=== PATIENT | female | born 1935 | race Caucasian/White ===

== ENCOUNTER → 2019-03-07 | Outpatient (CLI) | payer MEDICARE, OTHER ==
[2019-03-07 18:50] LABS: Anion Gap -2 mmol/L (6-16); Blood Urea Nitrogen 17 mg/dL (8-24); Bun/Creatinine Ratio 20.8 (12.0-20.0); CO2, Blood 34 mmol/L (21-32); Chloride, Blood 107 mmol/L (98-108); Creatinine, Blood 0.82 mg/dL (0.40-1.00); Glomerular Filtration Rate >60 (60-); Glucose, Blood 104 mg/dL (70-99); Potassium, Blood 4.6 mmol/L (3.5-5.5); Sodium, Blood 139 mmol/L (136-145)
== END | disposition home or self-care (01) ==
LOC: LAB SHORT 18:30 → LAB 18:30 → LAB FUT 03-07 14:25 → EDSTATUS 03-07 14:25
PROVIDERS: Nurse Practitioner Family
DX: I50.9 Heart failure, unspecified (principal); I42.9 Cardiomyopathy, unspecified
CPT/HCPCS: 80048

== ENCOUNTER → 2019-07-04 | Outpatient (CLI) | payer MEDICARE, OTHER ==
[2019-07-05 18:21] LABS: Alanine Aminotransfer (ALT/SGP 28 U/L (12-78); Albumin, Blood 3.5 g/dL (3.4-5.0); Albumin/Globulin Ratio 0.9 (0.8-1.8); Alk Phos 91 U/L (50-136); Anion Gap 6 mmol/L (6-16); Aspartate Aminotrans (AST/SGOT 14 U/L (12-37); Bilirubin, Total 0.6 mg/dL (0.1-1.0); Blood Urea Nitrogen 17 mg/dL (8-24); CO2, Blood 33 mmol/L (21-32); Calcium, Blood 9.4 mg/dL (8.5-10.1); Chloride, Blood 102 mmol/L (98-108); Cholesterol 225 mg/dL (50-200); Globulin, Blood 3.9 g/dL (2.2-4.0); Glucose, Blood 111 mg/dL (70-99); HDL Cholesterol 110 mg/dL (>39); LDL Direct Measurement 96 mg/dL (0-130); LDL/HDL RATIO 0.9; Low Density Lipoprotein Chol 100 mg/dL (0-110); Potassium, Blood 3.8 mmol/L (3.5-5.5); Sodium, Blood 141 mmol/L (136-145); Total Protein, Blood 7.4 g/dL (6.4-8.2); Triglycerides 73 mg/dL (30-160); Very Low Density Lipoprot Chol 14 mg/dL (6-32)
[2019-07-05 18:24] LABS: Bun/Creatinine Ratio 24.1 (12.0-20.0); Creatinine, Blood 0.71 mg/dL (0.40-1.00); Glomerular Filtration Rate >60 (60-)
[2019-07-05 18:30] LABS: BASOPHILS ABSOLUTE AUTO 0.05 K/mm3 (0.00-0.23); BASOPHILS PERCENT AUTO 1 % (0-2); EOSINOPHILS ABSOLUTE AUTO 0.11 K/mm3 (0.00-0.68); EOSINOPHILS PERCENT AUTO 2 % (0-6); Hematocrit 44.3 % (33.0-51.0); Hemoglobin 14.1 g/dL (11.5-16.0); IMMATURE GRAN ABSOLUTE AUTO 0.02 K/mm3 (0.00-0.10); IMMATURE GRAN PERCENT AUTO 0 % (0-1); LYMPHOCYTES ABSOLUTE AUTO 1.53 K/mm3 (0.84-5.20); LYMPHOCYTES PERCENT AUTO 21 % (21-46); MONOCYTES PERCENT AUTO 8 % (4-13); Mean Corpuscular HGB 30.2 pg (26.0-34.0); Mean Corpuscular HGB Conc 31.8 g/dL (31.5-36.5); Mean Corpuscular Volume 95 fL (80-100); Mean Platelet Volume 12.9 fL (9.1-12.4); NEUTROPHILS ABSOLUTE AUTO 4.83 K/mm3 (1.96-9.15); NEUTROPHILS PERCENT AUTO 68 % (41-73); Platelet Count 244 K/mm3 (150-400); RDW Coefficient Variation 14.3 % (11.7-14.2); RDW Standard Deviation 49.4 fL (35.1-46.3); Red Blood Cell Count 4.67 M/mm3 (3.80-5.20); White Blood Cell Count 7.14 K/mm3 (4.00-11.30)
== END | disposition home or self-care (01) ==
LOC: LAB 16:29 → LAB SHORT 16:29 → LAB FUT 07-05 15:55 → EDSTATUS 07-05 15:55
PROVIDERS: Nurse Practitioner Family
DX: E78.5 Hyperlipidemia, unspecified (principal); I50.9 Heart failure, unspecified
CPT/HCPCS: 80053; 80061; 83721; 85025

== ENCOUNTER → 2020-09-05 | Outpatient (CLI) | payer MEDICARE, OTHER ==
[2020-09-05 17:42] LABS: BASOPHILS ABSOLUTE AUTO 0.06 K/mm3 (0.00-0.23); BASOPHILS PERCENT AUTO 1 % (0-2); EOSINOPHILS ABSOLUTE AUTO 0.08 K/mm3 (0.00-0.68); EOSINOPHILS PERCENT AUTO 2 % (0-6); Hematocrit 35.4 % (33.0-51.0); Hemoglobin 13.2 g/dL (11.5-16.0); IMMATURE GRAN ABSOLUTE AUTO 0.02 K/mm3 (0.00-0.10); IMMATURE GRAN PERCENT AUTO 0 % (0-1); LYMPHOCYTES PERCENT AUTO 26 % (21-46); MONOCYTES ABSOLUTE AUTO 0.57 K/mm3 (0.16-1.47); MONOCYTES PERCENT AUTO 10 % (4-13); Mean Corpuscular HGB 36.6 pg (26.0-34.0); Mean Corpuscular HGB Conc 37.3 g/dL (31.5-36.5); Mean Corpuscular Volume 98 fL (80-100); Mean Platelet Volume 12.9 fL (9.1-12.4); NEUTROPHILS ABSOLUTE AUTO 3.37 K/mm3 (1.96-9.15); NEUTROPHILS PERCENT AUTO 61 % (41-73); Platelet Count 225 K/mm3 (150-400); RDW Coefficient Variation 15.5 % (11.7-14.2); RDW Standard Deviation 50.4 fL (35.1-46.3); Red Blood Cell Count 3.61 M/mm3 (3.80-5.20)
[2020-09-05 18:20] LABS: Cholesterol 202 mg/dL (50-200); HDL Cholesterol 100 mg/dL (>39); LDL Direct Measurement 88 mg/dL (0-130); LDL/HDL RATIO 0.9; Low Density Lipoprotein Chol 92 mg/dL (0-110); Triglycerides 49 mg/dL (30-160); Very Low Density Lipoprot Chol 9 mg/dL (6-32)
[2020-09-05 18:21] LABS: Alanine Aminotransfer (ALT/SGP 31 U/L (12-78); Albumin, Blood 3.3 g/dL (3.4-5.0); Alk Phos 87 U/L (50-136); Anion Gap 4 mmol/L (6-16); Aspartate Aminotrans (AST/SGOT 16 U/L (12-37); Bilirubin, Total 0.6 mg/dL (0.1-1.0); Blood Urea Nitrogen 14 mg/dL (8-24); Bun/Creatinine Ratio 19.7 (12.0-20.0); CO2, Blood 30 mmol/L (21-32); Calcium, Blood 8.9 mg/dL (8.5-10.1); Chloride, Blood 108 mmol/L (98-108); Creatinine, Blood 0.71 mg/dL (0.40-1.00); Globulin, Blood 3.4 g/dL (2.2-4.0); Glomerular Filtration Rate >60 (60-); Glucose, Blood 103 mg/dL (70-99); Potassium, Blood 4.2 mmol/L (3.5-5.5); Sodium, Blood 142 mmol/L (136-145); Total Protein, Blood 6.7 g/dL (6.4-8.2)
== END | disposition home or self-care (01) ==
LOC: LAB SHORT 16:09 → LAB 16:09
PROVIDERS: Nurse Practitioner Family
DX: Z00.00 Encounter for general adult medical examination without abnormal findings (principal); I11.0 Hypertensive heart disease with heart failure; I50.9 Heart failure, unspecified
CPT/HCPCS: 80053; 80061; 83721; 85025

== ENCOUNTER → 2021-08-11 | Outpatient (CLI) | payer MEDICARE, OTHER | END | disposition home or self-care (01) | LOC: LAB SHORT 12:00 | DX: S81.801A Unspecified open wound, right lower leg, initial encounter (principal) | CPT/HCPCS: 87070; 87077; 87147; 87186; 87205 ==

== ENCOUNTER → 2021-09-30 | Outpatient (CLI) | payer MEDICARE, OTHER ==
[2021-09-30 19:40] LABS: Alanine Aminotransfer (ALT/SGP 23 U/L (12-78); Albumin, Blood 3.8 g/dL (3.4-5.0); Albumin/Globulin Ratio 1.1 (0.8-1.8); Alk Phos 92 U/L (50-136); Anion Gap 3 mmol/L (6-16); Aspartate Aminotrans (AST/SGOT 10 U/L (12-37); Bilirubin, Total 0.6 mg/dL (0.1-1.0); Blood Urea Nitrogen 18 mg/dL (8-24); Bun/Creatinine Ratio 27.3 (12.0-20.0); CO2, Blood 33 mmol/L (21-32); Calcium, Blood 9.2 mg/dL (8.5-10.1); Chloride, Blood 104 mmol/L (98-108); Creatinine, Blood 0.66 mg/dL (0.40-1.00); Globulin, Blood 3.4 g/dL (2.2-4.0); Glomerular Filtration Rate >60 (60-); Glucose, Blood 118 mg/dL (70-99); Potassium, Blood 4.6 mmol/L (3.5-5.5); Sodium, Blood 140 mmol/L (136-145); Total Protein, Blood 7.2 g/dL (6.4-8.2)
== END | disposition home or self-care (01) ==
LOC: LAB SHORT 10:03
PROVIDERS: Nurse Practitioner Family
DX: S81.801A Unspecified open wound, right lower leg, initial encounter (principal); S91.302D Unspecified open wound, left foot, subsequent encounter; I50.9 Heart failure, unspecified
CPT/HCPCS: 80053; 87070; 87205

== ENCOUNTER 2021-12-10 03:33 | Day surgery (SDC) | payer MEDICARE, OTHER | END 2021-12-10 23:19 | disposition home or self-care (01) | LOC: WOUND 03:33 | DX: L97.812 Non-pressure chronic ulcer of other part of right lower leg with fat layer exposed (principal); L97.522 Non-pressure chronic ulcer of other part of left foot with fat layer exposed; I70.213 Atherosclerosis of native arteries of extremities with intermittent claudication, bilateral legs; I87.2 Venous insufficiency (chronic) (peripheral); R60.0 Localized edema; Z88.1 Allergy status to other antibiotic agents; Z87.891 Personal history of nicotine dependence; J44.9 Chronic obstructive pulmonary disease, unspecified; I25.10 Atherosclerotic heart disease of native coronary artery without angina pectoris; I11.0 Hypertensive heart disease with heart failure; I50.9 Heart failure, unspecified | CPT/HCPCS: A9270 ==

== ENCOUNTER 2021-12-17 00:52 | Day surgery (SDC) | payer MEDICARE, OTHER | END 2021-12-17 22:50 | disposition home or self-care (01) | LOC: WOUND 00:52 | DX: L97.812 Non-pressure chronic ulcer of other part of right lower leg with fat layer exposed (principal); L97.522 Non-pressure chronic ulcer of other part of left foot with fat layer exposed; I70.213 Atherosclerosis of native arteries of extremities with intermittent claudication, bilateral legs; I87.2 Venous insufficiency (chronic) (peripheral); R60.0 Localized edema; I50.9 Heart failure, unspecified; J44.9 Chronic obstructive pulmonary disease, unspecified | CPT/HCPCS: A9270 ==

== ENCOUNTER → 2021-12-23 | Outpatient (CLI) | payer MEDICARE, OTHER ==
[~2021-12-23] MED LIST: ALBU90OI INH; BUMETANIDE2 M6 PO; ENTRESTO 24 MG1 EAC3 PO; KLOR-CON 1010 ME8 PO; METOPROLOL SUCC25 MG PO; MULVITA PO; NITR.4SL SL; TUMERIC PO; Vitamin C100 M1 PO; WIXELA 250-501 EAC1 INH
[2021-12-23 17:34] LABS: International Normalized Ratio 0.98; Prothrombin Time Results 10.3 Sec (9.7-11.5)
[2021-12-23 18:15] LABS: Hematocrit 43.3 % (33.0-51.0); Hemoglobin 14.2 g/dL (11.5-16.0); Mean Corpuscular HGB Conc 32.8 g/dL (31.5-36.5); Mean Corpuscular Volume 95 fL (80-100); Mean Platelet Volume 12.6 fL (9.1-12.4); Platelet Count 225 K/mm3 (150-400); RDW Coefficient Variation 13.5 % (11.7-14.2); RDW Standard Deviation 47.1 fL (35.1-46.3); Red Blood Cell Count 4.58 M/mm3 (3.80-5.20); White Blood Cell Count 6.37 K/mm3 (4.00-11.30)
[2021-12-23 19:55] LABS: BASOPHILS ABSOLUTE MAN 0.19 K/mm3 (0.00-0.23); BASOPHILS PERCENT MAN 3 % (0-2); EOSINOPHILS ABSOLUTE MAN 0.12 K/mm3 (0.00-0.68); EOSINOPHILS PERCENT MAN 2 % (0-6); LYMPHOCYTES ABSOLUTE MAN 1.91 K/mm3 (0.84-5.20); LYMPHOCYTES PERCENT MAN 30 % (21-46); MONOCYTES ABSOLUTE MAN 0.31 K/mm3 (0.16-1.47); MONOCYTES PERCENT MAN 5 % (4-13); NEUTROPHILS ABSOLUTE MAN 3.82 K/mm3 (1.96-9.15); SEG NEUTROPHILS PERCENT MAN 60 % (41-73); TOTAL CELLS COUNTED 100
[2021-12-23 20:05] LABS: Bun/Creatinine Ratio 28.7 (12.0-20.0); Calcium, Blood 9.3 mg/dL (8.5-10.1); Creatinine, Blood 0.66 mg/dL (0.40-1.00)
== END | disposition home or self-care (01) ==
LOC: LAB SHORT 12:10 → LAB 12:10
PROVIDERS: Nurse Practitioner Family
DX: Z01.812 Encounter for preprocedural laboratory examination (principal); I70.213 Atherosclerosis of native arteries of extremities with intermittent claudication, bilateral legs
CPT/HCPCS: 80048; 85007; 85027; 85610

== ENCOUNTER 2021-12-24 09:57 | Day surgery (SDC) | payer MEDICARE, OTHER ==
[~2021-12-24] VITALS: Ht 175.3 cm; Wt 86.6 kg
[2021-12-24] MEDS ORDERED: WIXELA 250-501 EAC1 INH (10:32)
[2021-12-24] MEDS ORDERED: METOPROLOL SUCC25 MG PO (10:33)
[2021-12-24] MEDS ORDERED: BUMETANIDE2 M6 PO (10:33)
[2021-12-24] MEDS ORDERED: KLOR-CON 1010 ME8 PO (10:33)
[2021-12-24] MEDS ORDERED: Vitamin C100 M1 PO (10:34)
[2021-12-24] MEDS ORDERED: ENTRESTO 24 MG1 EAC3 PO (10:34)
[2021-12-24] MEDS ORDERED: ALBU90OI INH (10:34)
[2021-12-24] MEDS ORDERED: NITR.4SL SL (10:35)
[2021-12-24] MEDS ORDERED: MULVITA PO (10:35)
[2021-12-24] MEDS ORDERED: TUMERIC PO (10:36)
--- NOTE | 2021-12-24 14:26 | NUR ---
PT TO RECOVERY ROOM FROM LAB.
--- NOTE | 2021-12-24 15:45 | NUR ---
PT SITTING UP IN BED. SITE SOFT AND NON-TENDER. NO BLEEDING NOTED. PT A&Ox4.
--- NOTE | 2021-12-24 16:18 | NUR ---
PT SITTING UP AT BEDSIDE EATING FOOD. AT BEDSIDE.
--- NOTE | 2021-12-24 16:53 | NUR ---
PT VERBALIZED UNDERSTANDING OF D/C INSTRUCTIONS. PAPERWORK PROVIDED IN FOLDER. RIGHT GROIN SITE SOFT, NON TENDER, NO BLEEDING OR OOZING NOTED. DRESSING CLEAN, DRY, INTACT. PT GETS DRESSED WITH ASSISTANCE FROM RN, ABLE TO STAND, HOWEVER IS UNSTEADY, PT HAS BROUGHT WITH HIM HER TWO CANES WHICH SHE WILL USE SUPPORT DEVICES. PT ENCOURAGED TO FOLLOW UP SCHEDULED. IV REMOVED FROM LAC WITH CATH INTACT, PRESSURE DRESSING APPLIED. NO ACUTE DISTRESS NOTED AT TIME OF DISPO. TAKEN TO PRIVATE VEHICLE VIA W/C. VSS.
== END 2021-12-24 16:44 | disposition home or self-care (01) ==
LOC: MHTC 09:57
DX: I70.245 Atherosclerosis of native arteries of left leg with ulceration of other part of foot (principal); L97.529 Non-pressure chronic ulcer of other part of left foot with unspecified severity; I70.235 Atherosclerosis of native arteries of right leg with ulceration of other part of foot; L97.519 Non-pressure chronic ulcer of other part of right foot with unspecified severity; J44.9 Chronic obstructive pulmonary disease, unspecified; E78.5 Hyperlipidemia, unspecified; I11.0 Hypertensive heart disease with heart failure; I50.9 Heart failure, unspecified; Z88.1 Allergy status to other antibiotic agents; I87.2 Venous insufficiency (chronic) (peripheral)
CPT/HCPCS: 76937; 99152; 99153; C1725; C1760; C1769; C1887; C1894; J1644; J2250; J3010; J7030; J7040; Q9967

== ENCOUNTER 2021-12-31 08:00 | Day surgery (SDC) | payer MEDICARE, OTHER | END 2021-12-31 23:59 | disposition home or self-care (01) | LOC: WOUND 08:00 | DX: I70.238 Atherosclerosis of native arteries of right leg with ulceration of other part of lower leg (principal); L97.522 Non-pressure chronic ulcer of other part of left foot with fat layer exposed; I70.245 Atherosclerosis of native arteries of left leg with ulceration of other part of foot; L97.812 Non-pressure chronic ulcer of other part of right lower leg with fat layer exposed; I87.2 Venous insufficiency (chronic) (peripheral); R60.0 Localized edema; J44.9 Chronic obstructive pulmonary disease, unspecified; I50.9 Heart failure, unspecified | CPT/HCPCS: A9270 ==

== ENCOUNTER → 2022-01-14 | Day surgery (SDC) | payer MEDICARE, OTHER | LOC: WOUND 02:35 | DX: I70.213 Atherosclerosis of native arteries of extremities with intermittent claudication, bilateral legs (principal); L97.522 Non-pressure chronic ulcer of other part of left foot with fat layer exposed; L97.812 Non-pressure chronic ulcer of other part of right lower leg with fat layer exposed; I87.2 Venous insufficiency (chronic) (peripheral); R60.0 Localized edema; J44.9 Chronic obstructive pulmonary disease, unspecified; I50.9 Heart failure, unspecified | CPT/HCPCS: A9270 ==

== ENCOUNTER 2022-01-21 01:16 | Day surgery (SDC) | payer MEDICARE, OTHER | END 2022-01-21 23:38 | disposition home or self-care (01) | LOC: WOUND 01:16 | DX: L97.522 Non-pressure chronic ulcer of other part of left foot with fat layer exposed (principal); L97.812 Non-pressure chronic ulcer of other part of right lower leg with fat layer exposed; I87.2 Venous insufficiency (chronic) (peripheral); I70.213 Atherosclerosis of native arteries of extremities with intermittent claudication, bilateral legs; R60.0 Localized edema; J44.9 Chronic obstructive pulmonary disease, unspecified; I50.9 Heart failure, unspecified | CPT/HCPCS: A9270; G0463 ==

== ENCOUNTER 2022-02-04 08:00 | Day surgery (SDC) | payer MEDICARE, OTHER | END 2022-02-04 23:59 | disposition home or self-care (01) | LOC: WOUND 08:00 | DX: I70.238 Atherosclerosis of native arteries of right leg with ulceration of other part of lower leg (principal); I70.248 Atherosclerosis of native arteries of left leg with ulceration of other part of lower leg; L97.822 Non-pressure chronic ulcer of other part of left lower leg with fat layer exposed; L97.812 Non-pressure chronic ulcer of other part of right lower leg with fat layer exposed; I87.2 Venous insufficiency (chronic) (peripheral); J44.9 Chronic obstructive pulmonary disease, unspecified; I50.9 Heart failure, unspecified | CPT/HCPCS: G0463 ==

== ENCOUNTER 2022-03-10 01:57 | Day surgery (SDC) | payer MEDICARE, OTHER | END 2022-03-10 23:16 | disposition home or self-care (01) | LOC: WOUND 01:57 | DX: L97.912 Non-pressure chronic ulcer of unspecified part of right lower leg with fat layer exposed (principal); L97.522 Non-pressure chronic ulcer of other part of left foot with fat layer exposed; I87.2 Venous insufficiency (chronic) (peripheral); I70.213 Atherosclerosis of native arteries of extremities with intermittent claudication, bilateral legs; J44.9 Chronic obstructive pulmonary disease, unspecified; I50.9 Heart failure, unspecified | CPT/HCPCS: A9270 ==

== ENCOUNTER 2022-04-01 02:01 | Day surgery (SDC) | payer MEDICARE, OTHER | END 2022-04-01 23:40 | disposition home or self-care (01) | LOC: WOUND 02:01 | DX: L97.522 Non-pressure chronic ulcer of other part of left foot with fat layer exposed (principal); L97.912 Non-pressure chronic ulcer of unspecified part of right lower leg with fat layer exposed; I87.2 Venous insufficiency (chronic) (peripheral); I70.213 Atherosclerosis of native arteries of extremities with intermittent claudication, bilateral legs; J44.9 Chronic obstructive pulmonary disease, unspecified; I50.9 Heart failure, unspecified | CPT/HCPCS: A9270; G0463 ==

== ENCOUNTER 2022-04-07 02:40 | Day surgery (SDC) | payer MEDICARE, OTHER | END 2022-04-07 22:46 | disposition home or self-care (01) | LOC: WOUND 02:40 | DX: L97.522 Non-pressure chronic ulcer of other part of left foot with fat layer exposed (principal); L97.912 Non-pressure chronic ulcer of unspecified part of right lower leg with fat layer exposed; I87.2 Venous insufficiency (chronic) (peripheral); I70.213 Atherosclerosis of native arteries of extremities with intermittent claudication, bilateral legs; J44.9 Chronic obstructive pulmonary disease, unspecified; I50.9 Heart failure, unspecified | CPT/HCPCS: A9270; G0463 ==

== ENCOUNTER 2022-04-15 02:30 | Day surgery (SDC) | payer MEDICARE, OTHER | END 2022-04-15 23:00 | disposition home or self-care (01) | LOC: WOUND 02:30 | DX: I70.245 Atherosclerosis of native arteries of left leg with ulceration of other part of foot (principal); I70.238 Atherosclerosis of native arteries of right leg with ulceration of other part of lower leg; L97.812 Non-pressure chronic ulcer of other part of right lower leg with fat layer exposed; L97.522 Non-pressure chronic ulcer of other part of left foot with fat layer exposed; I87.2 Venous insufficiency (chronic) (peripheral); R60.0 Localized edema; J44.9 Chronic obstructive pulmonary disease, unspecified; I50.9 Heart failure, unspecified | CPT/HCPCS: A9270; G0463 ==

== ENCOUNTER 2022-04-22 02:18 | Day surgery (SDC) | payer MEDICARE, OTHER | END 2022-04-22 22:54 | disposition home or self-care (01) | LOC: WOUND 02:18 | DX: L97.522 Non-pressure chronic ulcer of other part of left foot with fat layer exposed (principal); L97.812 Non-pressure chronic ulcer of other part of right lower leg with fat layer exposed; I70.213 Atherosclerosis of native arteries of extremities with intermittent claudication, bilateral legs; I87.2 Venous insufficiency (chronic) (peripheral) ==

== ENCOUNTER 2022-04-29 02:00 | Day surgery (SDC) | payer MEDICARE, OTHER | END 2022-04-29 23:46 | disposition home or self-care (01) | LOC: WOUND 02:00 | DX: I70.245 Atherosclerosis of native arteries of left leg with ulceration of other part of foot (principal); L97.522 Non-pressure chronic ulcer of other part of left foot with fat layer exposed; I70.211 Atherosclerosis of native arteries of extremities with intermittent claudication, right leg; I87.2 Venous insufficiency (chronic) (peripheral); R60.0 Localized edema; J44.9 Chronic obstructive pulmonary disease, unspecified; I50.9 Heart failure, unspecified | CPT/HCPCS: A9270; G0463 ==

== ENCOUNTER 2022-05-04 02:13 | Day surgery (SDC) | payer MEDICARE, OTHER | END 2022-05-04 23:37 | disposition home or self-care (01) | LOC: WOUND 02:13 | DX: I70.245 Atherosclerosis of native arteries of left leg with ulceration of other part of foot (principal); I70.238 Atherosclerosis of native arteries of right leg with ulceration of other part of lower leg; L97.522 Non-pressure chronic ulcer of other part of left foot with fat layer exposed; L97.812 Non-pressure chronic ulcer of other part of right lower leg with fat layer exposed; I87.2 Venous insufficiency (chronic) (peripheral); R60.0 Localized edema; J44.9 Chronic obstructive pulmonary disease, unspecified; I50.9 Heart failure, unspecified; L03.90 Cellulitis, unspecified | CPT/HCPCS: A9270 ==

== ENCOUNTER 2022-05-13 02:21 | Day surgery (SDC) | payer MEDICARE, OTHER | END 2022-05-13 23:39 | disposition home or self-care (01) | LOC: WOUND 02:21 | DX: L97.522 Non-pressure chronic ulcer of other part of left foot with fat layer exposed (principal); L97.912 Non-pressure chronic ulcer of unspecified part of right lower leg with fat layer exposed; I87.2 Venous insufficiency (chronic) (peripheral); I70.213 Atherosclerosis of native arteries of extremities with intermittent claudication, bilateral legs | CPT/HCPCS: A9270; G0463 ==

== ENCOUNTER 2022-05-27 02:40 | Day surgery (SDC) | payer MEDICARE, OTHER | END 2022-05-27 23:06 | disposition home or self-care (01) | LOC: WOUND 02:40 | DX: L97.522 Non-pressure chronic ulcer of other part of left foot with fat layer exposed (principal); J44.9 Chronic obstructive pulmonary disease, unspecified; I50.9 Heart failure, unspecified; L97.912 Non-pressure chronic ulcer of unspecified part of right lower leg with fat layer exposed; I73.9 Peripheral vascular disease, unspecified; I87.2 Venous insufficiency (chronic) (peripheral); I70.213 Atherosclerosis of native arteries of extremities with intermittent claudication, bilateral legs | CPT/HCPCS: A9270 ==

== ENCOUNTER 2022-06-03 05:58 | Day surgery (SDC) | payer MEDICARE, OTHER | END 2022-06-03 23:07 | disposition home or self-care (01) | LOC: WOUND 05:58 | DX: L97.522 Non-pressure chronic ulcer of other part of left foot with fat layer exposed (principal); I87.2 Venous insufficiency (chronic) (peripheral); I50.9 Heart failure, unspecified; J44.9 Chronic obstructive pulmonary disease, unspecified; L97.912 Non-pressure chronic ulcer of unspecified part of right lower leg with fat layer exposed; I73.9 Peripheral vascular disease, unspecified; I70.213 Atherosclerosis of native arteries of extremities with intermittent claudication, bilateral legs | CPT/HCPCS: A9270 ==

== ENCOUNTER 2022-06-10 01:46 | Day surgery (SDC) | payer MEDICARE, OTHER | END 2022-06-10 22:57 | disposition home or self-care (01) | LOC: WOUND 01:46 | DX: L97.522 Non-pressure chronic ulcer of other part of left foot with fat layer exposed (principal); J44.9 Chronic obstructive pulmonary disease, unspecified; I50.9 Heart failure, unspecified; I73.9 Peripheral vascular disease, unspecified; I87.2 Venous insufficiency (chronic) (peripheral); I70.213 Atherosclerosis of native arteries of extremities with intermittent claudication, bilateral legs | CPT/HCPCS: A9270; G0463 ==

== ENCOUNTER 2022-06-17 00:54 | Day surgery (SDC) | payer MEDICARE, OTHER | END 2022-06-18 00:03 | disposition home or self-care (01) | LOC: WOUND 00:54 | DX: L97.522 Non-pressure chronic ulcer of other part of left foot with fat layer exposed (principal); J44.9 Chronic obstructive pulmonary disease, unspecified; I50.9 Heart failure, unspecified; L97.912 Non-pressure chronic ulcer of unspecified part of right lower leg with fat layer exposed; I87.2 Venous insufficiency (chronic) (peripheral); I70.213 Atherosclerosis of native arteries of extremities with intermittent claudication, bilateral legs | CPT/HCPCS: A9270 ==

== ENCOUNTER 2022-07-01 00:53 | Day surgery (SDC) | payer MEDICARE, OTHER | END 2022-07-01 23:15 | disposition home or self-care (01) | LOC: WOUND 00:53 | DX: L97.522 Non-pressure chronic ulcer of other part of left foot with fat layer exposed (principal); L97.812 Non-pressure chronic ulcer of other part of right lower leg with fat layer exposed; I87.2 Venous insufficiency (chronic) (peripheral); I70.213 Atherosclerosis of native arteries of extremities with intermittent claudication, bilateral legs; I50.9 Heart failure, unspecified; J44.9 Chronic obstructive pulmonary disease, unspecified | CPT/HCPCS: A9270 ==

== ENCOUNTER 2022-07-08 04:06 | Day surgery (SDC) | payer MEDICARE, OTHER | END 2022-07-08 23:09 | disposition home or self-care (01) | LOC: WOUND 04:06 | DX: L97.522 Non-pressure chronic ulcer of other part of left foot with fat layer exposed (principal); L97.912 Non-pressure chronic ulcer of unspecified part of right lower leg with fat layer exposed; I70.213 Atherosclerosis of native arteries of extremities with intermittent claudication, bilateral legs; I87.2 Venous insufficiency (chronic) (peripheral); R60.0 Localized edema; J44.9 Chronic obstructive pulmonary disease, unspecified; I50.9 Heart failure, unspecified | CPT/HCPCS: A9270; G0463 ==

== ENCOUNTER 2022-07-20 09:21 | Inpatient (IN) | payer MEDICARE, OTHER ==
[~2022-07-20] VITALS: Ht 175.3 cm; Wt 80.1 kg
[2022-07-20 10:38] LABS: Base Excess Venous 7.1 mmol/L; Bicarbonate Venous 28.6 mmol/L (24.0-30.0); PCO2 Venous 52.6 mmHg (38-42); PO2 Venous 35.5 mmHg (38-42); pH Blood Venous 7.39 (7.34-7.37)
[2022-07-20 10:47] LABS: Hematocrit 39.4 % (33.0-51.0); Hemoglobin 13.8 g/dL (11.5-16.0); LYMPHOCYTES PERCENT AUTO 4 % (21-46); MONOCYTES ABSOLUTE AUTO 0.92 K/mm3 (0.16-1.47); MONOCYTES PERCENT AUTO 9 % (4-13); Mean Corpuscular HGB 34.6 pg (26.0-34.0); Mean Corpuscular Volume 99 fL (80-100); Mean Platelet Volume 12.3 fL (9.1-12.4); Platelet Count 310 K/mm3 (150-400); RDW Standard Deviation 52.8 fL (35.1-46.3); Red Blood Cell Count 3.99 M/mm3 (3.80-5.20); White Blood Cell Count 10.72 K/mm3 (4.00-11.30)
[2022-07-20 10:52] LABS: BASOPHILS ABSOLUTE AUTO 0.04 K/mm3 (0.00-0.23); BASOPHILS PERCENT AUTO 0 % (0-2); EOSINOPHILS ABSOLUTE AUTO 0.04 K/mm3 (0.00-0.68); EOSINOPHILS PERCENT AUTO 0 % (0-6); IMMATURE GRAN ABSOLUTE AUTO 0.12 K/mm3 (0.00-0.10); IMMATURE GRAN PERCENT AUTO 1 % (0-1); NEUTROPHILS PERCENT AUTO 86 % (41-73)
[2022-07-20 11:39] LABS: Albumin, Blood 2.1 g/dL (3.4-5.0); Albumin/Globulin Ratio 0.4 (0.8-1.8); Bilirubin, Total 0.6 mg/dL (0.1-1.0); Bun/Creatinine Ratio 33.2 (12.0-20.0); Calcium, Blood 9.1 mg/dL (8.5-10.1); Creatinine, Blood 0.63 mg/dL (0.40-1.00); Globulin, Blood 5.2 g/dL (2.2-4.0); Potassium, Blood 3.7 mmol/L (3.5-5.5); Total Protein, Blood 7.3 g/dL (6.4-8.2)
[2022-07-20 11:47] LABS: Influenza A, PCR NEGATIVE (NEGATIVE); Influenza B, PCR NEGATIVE (NEGATIVE); Resp Syncytial Virus, PCR NEGATIVE (NEGATIVE); SARS-Cov-2 (COVID-19) PCR, MMC NEGATIVE (NEGATIVE)
[2022-07-20 18:04] LABS: Base Excess Venous 8.8 mmol/L; Bicarbonate Venous 29.5 mmol/L (24.0-30.0); PCO2 Venous 59.7 mmHg (38-42); pH Blood Venous 7.37 (7.34-7.37)
--- NOTE | 2022-07-20 20:03 | NUR ---
END OF SHIFT: NEURO: PATIENT IS ALERT AND ORIENTED. PLEASANT, COOPERATIVE WITH CARE. NO CONCERNS. POSSIBLE NEUROPATHY WITH ARTERIAL INSUFF ENDORSED BY PATIENT. PULM: PULMONARY EDEMA IMPROVING SINCE ED LASIX. PATIENT TOLERATING LONG BREAKS ON NC 6L AND BIPAP 06/04. NO CONCERNS IMPROVING. CARDIAC: PATIENT IS SR WITH MULTIPLE PVC'S DENIES CHEST PAIN OR PRESSURE IS NORMOTENSIVE. IREGULAR HEART SOUNDS. GI/: PATIENT HAS BEEN INCONTINENT MIXED CURRENLTY. PURWIK IN PLACE. NO CONCERNS FROM THIS PATIENT AT THIS TIME. CONTINUE TO MONITOR AT THIS TIME.
[2022-07-21 04:14] LABS: BASOPHILS ABSOLUTE AUTO 0.04 K/mm3 (0.00-0.23); BASOPHILS PERCENT AUTO 1 % (0-2); EOSINOPHILS PERCENT AUTO 0 % (0-6); Hematocrit 34.4 % (33.0-51.0); Hemoglobin 11.4 g/dL (11.5-16.0); IMMATURE GRAN ABSOLUTE AUTO 0.14 K/mm3 (0.00-0.10); IMMATURE GRAN PERCENT AUTO 2 % (0-1); LYMPHOCYTES ABSOLUTE AUTO 0.34 K/mm3 (0.84-5.20); LYMPHOCYTES PERCENT AUTO 4 % (21-46); MONOCYTES ABSOLUTE AUTO 0.45 K/mm3 (0.16-1.47); MONOCYTES PERCENT AUTO 5 % (4-13); Mean Corpuscular HGB 31.5 pg (26.0-34.0); Mean Corpuscular HGB Conc 33.1 g/dL (31.5-36.5); Mean Corpuscular Volume 95 fL (80-100); NEUTROPHILS ABSOLUTE AUTO 7.45 K/mm3 (1.96-9.15); NEUTROPHILS PERCENT AUTO 89 % (41-73); Platelet Count 281 K/mm3 (150-400); RDW Coefficient Variation 14.8 % (11.7-14.2); RDW Standard Deviation 51.3 fL (35.1-46.3); Red Blood Cell Count 3.62 M/mm3 (3.80-5.20); White Blood Cell Count 8.42 K/mm3 (4.00-11.30)
[2022-07-21 04:53] LABS: Bun/Creatinine Ratio 45.9 (12.0-20.0); Calcium, Blood 9.4 mg/dL (8.5-10.1); Creatinine, Blood 0.63 mg/dL (0.40-1.00); Magnesium, Blood 2.4 mg/dL (1.6-2.4); Potassium, Blood 3.4 mmol/L (3.5-5.5)
[2022-07-21 05:01] LABS: PCO2 Venous 49.5 mmHg (38-42); pH Blood Venous 7.45 (7.34-7.37)
[2022-07-21 05:02] LABS: Base Excess Venous 10.7 mmol/L; Bicarbonate Venous 33.1 mmol/L (24.0-30.0)
--- NOTE | 2022-07-21 06:09 | NUR ---
SHIFT SUMMARY PATIENT ALERT AND ORIENTED. HAD NO COMPLAINTS OF PAIN OR SHORTNESS OF BREATH. PATIENT REMAINED ON 6 LITERS O2 VIA NASAL CANULA ALL NIGHT, TOLERATED WELL. NO ACUTE ISSUES NOTED. CALL LIGHT WITHIN REACH.
--- NOTE | 2022-07-21 12:52 | NUR ---
PT CONVERTED TO AFIB AT APPROX 1100A CONFIRMED BY EKG. PT WAS GIVEN A DOSE OF PO CARDIZEM 30MG WITH NO EFFECT, ORDER TO START PT ON HEPARIN GTT AND CARDIZEM GTT TO TITRATE. PT DENIES ANY CHEST PAIN OR PRESSURE AT THIS TIME STILL SOB WORSENS WITH EXERTION. VITALS HRR 130-160'S, SBP 107, SATS ABOVE 90% ON 5L OF O2, AFEBRILE. ECHO ORDERED WELL AWAITING FOR PROCEDURE TO GET DONE. WILL MONITOR
[2022-07-21 12:56] LABS: Thyroxine (T4) 8.1 ug/dL (4.8-13.9); Triiodothyronine, Free 1.91 pg/mL (2.18-3.98)
[2022-07-21 13:30] LABS: Anti-Xa UFH, PHA Monitoring 0.21 IU/mL; International Normalized Ratio 1.04; Prothrombin Time Results 10.9 Sec (9.7-11.5)
--- NOTE | 2022-07-21 17:52 | NUR ---
PT SUMMARY: PT ON CARDIZEM GTT NOW RUNNING AT 10MG/HR, HEPARIN GTT AT 15U/KG/HR. HRR REMAINS AFIB 110-130'S PT HAD 8 BEATS RUN OF VTACH AT 1639 PROVIDER WAS NOTIFIED, SOFT SBP'S 90-100'S, SATS ABOVE 90% ON 4L OF O2, AFEBRILE. PT REMAINS ALERT AND ORIENTED AT BASELINE. DENIES CHEST PAIN AND DISCOMFORT, NITRO PASTE WAS DC'D. C/O MOIST NON PRODUCTIVE COUGH, COUGH MEDICINE ORDERED PT ALSO WAS OFFERED CRANBERRY JUICE PER RT'S RECOMMENDATION TO HELP LOOSEN UP SECRETIONS PT STATED IT DID HELP A LOT. PT WITH PUREWICK IN PLACE DUE TO DIURESIS, URINE DARK ORANGE/YELLOW IN COLOR. PT WAS REPOSTIONED FOR Q2HRS AND PRN. WAS IN TO VISIT WAS GIVEN AN UPDATE REAGARDING PT'S STATUS. NO OTHER ISSUES AT THIS TIME, PT CURRENTLY EATING DINNER, PT ABLE TO MAKE NEEDS KNOWN CALL LIGHTS IN REACH WILL REPORT TO ONCOMING SHIFT
[2022-07-22 05:37] LABS: BASOPHILS ABSOLUTE AUTO 0.03 K/mm3 (0.00-0.23); BASOPHILS PERCENT AUTO 0 % (0-2); EOSINOPHILS ABSOLUTE AUTO 0.03 K/mm3 (0.00-0.68); EOSINOPHILS PERCENT AUTO 0 % (0-6); Hematocrit 34.4 % (33.0-51.0); Hemoglobin 11.4 g/dL (11.5-16.0); Mean Corpuscular HGB 31.6 pg (26.0-34.0); Mean Corpuscular HGB Conc 33.1 g/dL (31.5-36.5); Mean Corpuscular Volume 95 fL (80-100); Mean Platelet Volume 12.1 fL (9.1-12.4); Platelet Count 307 K/mm3 (150-400); RDW Standard Deviation 52.3 fL (35.1-46.3); Red Blood Cell Count 3.61 M/mm3 (3.80-5.20); White Blood Cell Count 10.14 K/mm3 (4.00-11.30)
[2022-07-22 05:40] LABS: IMMATURE GRAN PERCENT AUTO 4 % (0-1); LYMPHOCYTES ABSOLUTE AUTO 1.21 K/mm3 (0.84-5.20); LYMPHOCYTES PERCENT AUTO 12 % (21-46); MONOCYTES ABSOLUTE AUTO 0.69 K/mm3 (0.16-1.47); MONOCYTES PERCENT AUTO 7 % (4-13); NEUTROPHILS ABSOLUTE AUTO 7.78 K/mm3 (1.96-9.15); NEUTROPHILS PERCENT AUTO 77 % (41-73)
[2022-07-22 05:56] LABS: Bun/Creatinine Ratio 45.1 (12.0-20.0); Calcium, Blood 9.1 mg/dL (8.5-10.1); Creatinine, Blood 0.73 mg/dL (0.40-1.00); Magnesium, Blood 2.4 mg/dL (1.6-2.4); Potassium, Blood 4.1 mmol/L (3.5-5.5)
--- NOTE | 2022-07-22 06:19 | NUR ---
SHIFT SUMMARY PATIENT ALERT AND ORIENTED X4. HAD NO COMPLAINTS OF PAIN. PATIENT SHORT OF BREATH WITH CONGESTED COUGH THIS MORNING. MEDICATED PER EMAR. PATIENT'S CARDIZEM DRIP TURNED OFF AROUND 0430 PATIENT CONVERTED FROM AFIB TO SINUS RHYTHM, SHE HAS BEEN HAVING RUNS OF PVC'S WELL. WILL CONTINUE TO MONITOR. CALL LIGHT WITHIN REACH.
--- NOTE | 2022-07-22 16:52 | NUR ---
PT SUMMARY: PT ON 4L OF O2 ALL SHIFT TODAY SATS KEPT ABOVE 90%, BREATHING TX PER RT, PT STILL HAS NON PRODUCTIVE MOIST COUGH OCCASIONALLY CRANBERRY PER REQUEST GIVEN. HRR CHANGES FROM AFIB TO WANDERING ATRIAL PACEMAKER RATE CONTROLLED 80-90'S PROVIDER AWARE OF THE CHANGES ORDERED TROPONIN TO TREND, PT DENIES ANY CHEST PAIN/PRESSURE ECHO WAS DONE TODAY AWAITING FOR RESULT, CARDIZEM WAS OFF ALL SHIFT. NO OTHER ISSUES ENCOUNTERED FOR THE SHIFT, SBP 100'S, AFEBRILE. HEPARIN GTT INCREASED TO 23U/KG/HR, PUREWICK WAS REPLACED FOR THE SHIFT, DARK URINE OUTOUT. PT DENIES ANY PAIN HAS SOME DISCOMFORT IN BED, REPOSITIONED Q2HRS. PT ABLE TO MAKE NEEDS KNOWN, CALLS APPROPRIATELY. WILL CONTINUE TO MONITOR
--- NOTE | 2022-07-23 06:03 | NUR ---
SHIFT SUMMARY NO ACUTE CHANGES OVERNIGHT. PT HAS RESTED MOST OF THE NIGHT, PT REMAINS ON 4L O2, SATS WNL. PT CONTINUES TO HAVE A MOIST HACKING NONPRODUCTIVE COUGH. HEPARIN GTT INFUSING. NO TELE CHANGES OVERNIGHT. PT DENIES PAIN. A/OX4, MAKES NEEDS KNOWN. BED IN LOWEST POSITION, CALL LIGHT WITHIN REACH.
[2022-07-23 07:45] LABS: Hematocrit 32.1 % (33.0-51.0); Hemoglobin 11.2 g/dL (11.5-16.0); Mean Corpuscular HGB 34.9 pg (26.0-34.0); Mean Corpuscular HGB Conc 34.9 g/dL (31.5-36.5); Platelet Count 321 K/mm3 (150-400); RDW Coefficient Variation 15.2 % (11.7-14.2); RDW Standard Deviation 54.3 fL (35.1-46.3); Red Blood Cell Count 3.21 M/mm3 (3.80-5.20); White Blood Cell Count 9.94 K/mm3 (4.00-11.30)
[2022-07-23 07:50] LABS: Mean Corpuscular Volume 100 fL (80-100)
[2022-07-23 07:56] LABS: Bun/Creatinine Ratio 42.5 (12.0-20.0); Calcium, Blood 8.8 mg/dL (8.5-10.1); Creatinine, Blood 0.57 mg/dL (0.40-1.00); Potassium, Blood 4.2 mmol/L (3.5-5.5)
[2022-07-23 08:52] LABS: BASOPHILS PERCENT MAN 0 % (0-2); EOSINOPHILS ABSOLUTE MAN 0.09 K/mm3 (0.00-0.68); EOSINOPHILS PERCENT MAN 1 % (0-6); LYMPHOCYTES ABSOLUTE MAN 1.09 K/mm3 (0.84-5.20); LYMPHOCYTES PERCENT MAN 11 % (21-46); MONOCYTES ABSOLUTE MAN 0.89 K/mm3 (0.16-1.47); MONOCYTES PERCENT MAN 9 % (4-13); MYELOCYTE ABSOLUTE MAN 0.39 K/mm3 (0.00-0.00); MYELOCYTE PERCENT MAN 4 % (0-0); NEUTROPHILS ABSOLUTE MAN 7.35 K/mm3 (1.96-9.15); PLASMA CELL ABSOLUTE MAN 0.09 K/mm3 (0.00-0.00); PLASMA CELLS PERCENT MAN 1 % (0-0); SEG NEUTROPHILS PERCENT MAN 74 % (41-73); TOTAL CELLS COUNTED 100
--- NOTE | 2022-07-23 16:29 | NUR ---
WOUND CARE WOUND PHOTO AND ASSESSMENT IN HARD CHART. ORDERS IN [facility]. BLE WOUNDS CLEANSED WITH NS, PAT DRY, CALCIUM ALGINATE TO WOUND BEDS, COVERED WITH BORDERED FOAM AND BADANET. PT TOLERATED WELL
--- NOTE | 2022-07-23 16:53 | NUR ---
SHIFT SUMMARY PT A/O X4, PLEASANT, COOPERATIVE AND USES CALL LIGHT APPROPRIATELY. PT HR IN 90'S WITH PVC'S AND PAC'S MAJORITY OF SHIFT. PT HAS PREVIOUSLY HAD EPISODES AFIB AND WAP. NONE WERE REPORTED THIS SHIFT. PT DID HAVE BRIEF EPISODE OF ACCELERATED IDIOVENTRICULAR RHYTHM RIGHT AT SHIFT CHANGE THIS AM. PT DENIES ANY CP OR INCREASING SOB UPON ASSESSMENT. PT ON 4L VIA NC TO REMAIN ABOVE 90%. OCCUPATIONAL THERAPY INCREASED PT TO 6L TODAY TO MAINTAIN ABOVE 90%. PHYSICAL THERAPY ALSO WORKED WITH PT TODAY. SHE TOLERATED ALL WELL. PT IS NOW 1 PERSON ASSIST WITH FWW. PT LUNGS ARE VERY DIMINISHED AND COARSE. PT HAS FREQUENT NON PRODUCTIVE COUGH. PT WAS GIVEN FLUTTER VALVE TODAY AND ENCOURAGED BY DR BHATTI TO USE IT Q1H. GRAPHIC TECHNICIAN SAW PT TODAY FOR BLE HEEL WOUNDS. PT HAS PUREWICK IN PLACE AND IT IS DRAINING YELLOW URINE. PT REPOSITIONED Q2H AND SPENT TIME IN THE RECLINER TODAY. WILL CONTINUE TO CARE FOR PT AND REPORT TO ONCOMING RN.
[2022-07-24 04:44] LABS: Hematocrit 34.8 % (33.0-51.0); Hemoglobin 11.3 g/dL (11.5-16.0); Mean Corpuscular HGB 31.4 pg (26.0-34.0); Mean Corpuscular HGB Conc 32.5 g/dL (31.5-36.5); Mean Corpuscular Volume 97 fL (80-100); Mean Platelet Volume 11.2 fL (9.1-12.4); Platelet Count 337 K/mm3 (150-400); RDW Coefficient Variation 14.8 % (11.7-14.2); RDW Standard Deviation 52.1 fL (35.1-46.3); White Blood Cell Count 8.55 K/mm3 (4.00-11.30)
[2022-07-24 05:06] LABS: Bun/Creatinine Ratio 29.5 (12.0-20.0); Calcium, Blood 8.7 mg/dL (8.5-10.1); Creatinine, Blood 0.58 mg/dL (0.40-1.00); Potassium, Blood 4.1 mmol/L (3.5-5.5)
[2022-07-24 05:16] LABS: BAND PERCENT MAN 1 % (0-8); BASOPHILS PERCENT MAN 0 % (0-2); EOSINOPHILS ABSOLUTE MAN 0.25 K/mm3 (0.00-0.68); EOSINOPHILS PERCENT MAN 3 % (0-6); LYMPHOCYTES ABSOLUTE MAN 1.45 K/mm3 (0.84-5.20); LYMPHOCYTES PERCENT MAN 17 % (21-46); METAMYELOCYTE ABSOLUTE MAN 0.08 K/mm3 (0.00-0.00); METAMYELOCYTE PERCENT MAN 1 % (0-0); MONOCYTES ABSOLUTE MAN 0.34 K/mm3 (0.16-1.47); MONOCYTES PERCENT MAN 4 % (4-13); MYELOCYTE ABSOLUTE MAN 0.34 K/mm3 (0.00-0.00); MYELOCYTE PERCENT MAN 4 % (0-0); NEUTROPHILS ABSOLUTE MAN 6.07 K/mm3 (1.96-9.15); SEG NEUTROPHILS PERCENT MAN 70 % (41-73); TOTAL CELLS COUNTED 100
--- NOTE | 2022-07-24 05:28 | NUR ---
MRS. BORGES REPORTS SHORTNESS OF BREATH IS MUCH LESS COMPARED TO DAY OF ADMISSION. SHE WAS UP TO THE CHAIR YESTERDAY AND STATED THAT SHE DID GET "WINDED" WITH THAT TRANSFER BUT IS JUST ABOUT "BACK TO MY NORMAL." MRS. BORGES REMAINS DEPENDENT UPON SUPPLEMENTAL OXYGEN AT 4 LPM PER NASAL CANNULA. I ATTEMPTED TO TITRATE THE OXYGEN DOWN TO 3 LPM WITHOUR SUCCESS. HER SpO2 DROPPED TO 87 - 89% ON 3 LPM. PT HAS CHRONIC STRESS INCONTINENCE AND INCONTINENCE WITH CHANGES IN POSITION FROM SITTING OR LYING TO STANDING. PUREWICK IN PLACE FOR ACCURATE INTAKE & OUTPUT.
[2022-07-24 13:11] LABS: THYROGLOBULIN ANTIBODY <1.0 IU/mL (0.0-0.9); THYROID PEROXIDASE (TPO) AB 17 IU/mL (0-34)
--- NOTE | 2022-07-24 16:30 | NUR ---
SHIFT SUMMARY PT IS ALERT AND ORIENTED X 4, SPO2 MAINTAINED 6-10L VIA NC DURING SHIFT. PT DESATURATED DURING SHIFT TO 88% THEREFORE O2 INCREASED TO MAINTAIN 02. PT IS NOW ON 5L VIA NC AND SPO2 96%. PER TELE REPORT, PT HAS BEEN IN SR W/ PAC'S AND PVC'S. BP STABLE. SHE HAS DENIED FEELINGS OF CHEST PAIN/PRESSURE, LIGHTHEADEDNESS OR DIZZINESS. SHE REPORTS HER APPETITE IS "GETTING BETTER" AND DENIES NAUSEA. SHE WAS UP TO CHAIR THIS AFTERNOON A 1 PERSON ASSIST. PURWICK DEVICE IN PLACE AND CONNECTED TO SUCTION. MEPILEX ON R INNER ANKLE, L OUTER FOOT AND COCCYX ARE CLEAN/DRY. OCCASSIONAL COUGH WAS MOIST THIS AM BUT NOW SOUNDS DRY. WILL CONTINUE TO MONITOR UNTIL REPORT GIVEN. CALL LIGHT IN REACH.
--- NOTE | 2022-07-24 18:38 | NUR ---
CARE NOTE AT APPROX. 1800 PT HAD A 7 BEAT RUN OF V-TACH, DR. BHATTI MADE AWARE BY THIS RN. PT DENIED ANY CHEST PAIN/PRESSURE, SHE DENIED FEELING LIGHTHEADED/DIZZY
[2022-07-25 03:50] LABS: Hematocrit 35.1 % (33.0-51.0); Hemoglobin 11.7 g/dL (11.5-16.0); Mean Corpuscular HGB 31.5 pg (26.0-34.0); Mean Corpuscular HGB Conc 33.3 g/dL (31.5-36.5); Mean Corpuscular Volume 95 fL (80-100); Mean Platelet Volume 11.3 fL (9.1-12.4); Platelet Count 325 K/mm3 (150-400); RDW Coefficient Variation 14.6 % (11.7-14.2); RDW Standard Deviation 51.1 fL (35.1-46.3); Red Blood Cell Count 3.71 M/mm3 (3.80-5.20); White Blood Cell Count 9.23 K/mm3 (4.00-11.30)
[2022-07-25 04:10] LABS: Albumin, Blood 1.8 g/dL (3.4-5.0); Albumin/Globulin Ratio 0.4 (0.8-1.8); Bilirubin, Total 0.2 mg/dL (0.1-1.0); Bun/Creatinine Ratio 30.3 (12.0-20.0); Calcium, Blood 8.8 mg/dL (8.5-10.1); Creatinine, Blood 0.63 mg/dL (0.40-1.00); Globulin, Blood 4.1 g/dL (2.2-4.0); Potassium, Blood 3.9 mmol/L (3.5-5.5); Total Protein, Blood 5.9 g/dL (6.4-8.2)
[2022-07-25 04:26] LABS: BAND PERCENT MAN 2 % (0-8); BASOPHILS PERCENT MAN 0 % (0-2); EOSINOPHILS ABSOLUTE MAN 0.09 K/mm3 (0.00-0.68); EOSINOPHILS PERCENT MAN 1 % (0-6); LYMPHOCYTES ABSOLUTE MAN 1.19 K/mm3 (0.84-5.20); LYMPHOCYTES PERCENT MAN 13 % (21-46); METAMYELOCYTE ABSOLUTE MAN 0.09 K/mm3 (0.00-0.00); METAMYELOCYTE PERCENT MAN 1 % (0-0); MONOCYTES ABSOLUTE MAN 0.55 K/mm3 (0.16-1.47); MONOCYTES PERCENT MAN 6 % (4-13); MYELOCYTE ABSOLUTE MAN 0.36 K/mm3 (0.00-0.00); MYELOCYTE PERCENT MAN 4 % (0-0); NEUTROPHILS ABSOLUTE MAN 6.92 K/mm3 (1.96-9.15); SEG NEUTROPHILS PERCENT MAN 73 % (41-73); TOTAL CELLS COUNTED 100
--- NOTE | 2022-07-25 06:23 | NUR ---
TITRATED SUPPLEMENTAL OXYGEN UP FROM 8 LPM PER HIGH FLOW NASAL CANNULA TO 15 LPM WHILE DOING MOODY CARE AND DOING A COMPLETE LINEN CHANGE DURING MY SHIFT ASSESSMENT IN THE 2000 HOUR. PATIENT COULD NOT MAINTAIN AN OXYGEN SATURATION LEVEL GREATER THAN 89% UNTIL THE PEAK OF 15 LPM. SUPPLEMENTAL OXYGEN WAS TITRATED DOWN THROUGHOUT THE NIGHT AND LANDED ON 5 LPM IN ORDER TO MAINTAIN OXYGEN SATURATION LEVEL OF 92% OR GREATER. MRS. BORGES DENIED FEELING SHORT OF BREATH AND STATES THAT SHE IS BREATHING DEEPER NOW THAN AT THE TIME OF ADMISSION, BUT IS NOT AT HER BASELINE FROM JUST TWO WEEKS AGO. EDUCATION PROVIDED REGARDING PROGRESSION OF COPD AND CHF. ALSO DISCUSSED FINDING OF PULMONARY HYPERTENSION WITH ECHOCARDIOGRAM. PATIENT WOULD LIKE TO TALK WITH DOCTOR ABOUT REASONS FOR DISCONTINUING ENTRESTO SHE HAS BEEN ON THIS MEDICATION FOR SEVERAL YEARS.
--- NOTE | 2022-07-25 18:43 | NUR ---
PT SUMMARY: PT RANGING ON 6-10L OF O2 FOR THE SHIFT PT STILL DESATS WITH EXERTION CURRENTLY NOW ON 6L SATTING ABOVE 90%, CHESTPHYSIOTHERAPY WAS ORDERED TO HELP WITH CONGESTION STARTED TODAY BY THE END OF THE SHIFT. PT WAS ALSO USING FLUTTER DEVICE AND DEEP BREATHING EXERCISES, LASIX 40M GIVEN ORDERED BID. PT WAS ABLE TO WORK WITH PHYSICAL THERAPIST GOT UP IN THE RECLINER CHAIR AFTER LUNCH UNTIL DINNER TIME. PT DENIES ANY CHEST PAIN/PRESSURE HRR REMAINS SR WITH PAC/PVCS RATE AT 70-90'S, SBP 110'S. NO OTHER ISSUES ENCOUNTERED, PT ABLE TO MAKE NEEDS KNOWN, CALL LIGHTS IN REACH WILL REPORT TO ONCOMING SHIFT
--- NOTE | 2022-07-25 19:15 | NUR ---
PER ORDER FROM DR. HUERTA, HOLD 2100 DOSE OF ENTRESTO TONIGHT DUE TO CONCERNS FOR HYPOTENSION WITH CONTINUED DIURESIS.
[2022-07-26 04:03] LABS: Hematocrit 35.4 % (33.0-51.0); Mean Corpuscular HGB 31.5 pg (26.0-34.0); Mean Corpuscular HGB Conc 33.9 g/dL (31.5-36.5); Mean Corpuscular Volume 93 fL (80-100); Mean Platelet Volume 11.4 fL (9.1-12.4); Platelet Count 359 K/mm3 (150-400); RDW Coefficient Variation 14.7 % (11.7-14.2); RDW Standard Deviation 50.7 fL (35.1-46.3); Red Blood Cell Count 3.81 M/mm3 (3.80-5.20); White Blood Cell Count 7.14 K/mm3 (4.00-11.30)
[2022-07-26 04:19] LABS: Bun/Creatinine Ratio 37.7 (12.0-20.0); Calcium, Blood 8.8 mg/dL (8.5-10.1); Creatinine, Blood 0.69 mg/dL (0.40-1.00); Potassium, Blood 3.6 mmol/L (3.5-5.5)
[2022-07-26 04:51] LABS: BAND PERCENT MAN 3 % (0-8); BASOPHILS PERCENT MAN 0 % (0-2); EOSINOPHILS ABSOLUTE MAN 0.07 K/mm3 (0.00-0.68); EOSINOPHILS PERCENT MAN 1 % (0-6); LYMPHOCYTES ABSOLUTE MAN 0.99 K/mm3 (0.84-5.20); LYMPHOCYTES PERCENT MAN 14 % (21-46); METAMYELOCYTE ABSOLUTE MAN 0.07 K/mm3 (0.00-0.00); METAMYELOCYTE PERCENT MAN 1 % (0-0); MONOCYTES ABSOLUTE MAN 0.21 K/mm3 (0.16-1.47); MONOCYTES PERCENT MAN 3 % (4-13); MYELOCYTE ABSOLUTE MAN 0.07 K/mm3 (0.00-0.00); MYELOCYTE PERCENT MAN 1 % (0-0); NEUTROPHILS ABSOLUTE MAN 5.71 K/mm3 (1.96-9.15); SEG NEUTROPHILS PERCENT MAN 77 % (41-73); TOTAL CELLS COUNTED 100
--- NOTE | 2022-07-26 07:47 | NUR ---
NO ACUTE EVENTS OVERNIGHT LAST NIGHT. PT REMAINS DEPENDENT UPON SUPPLEMENTAL OXYGEN BETWEEN 7 - 10 LPM. 2100 DOSE OF ENTRESTO HELD PER ORDER FROM DR. HUERTA. KEY IN PLACE. PATIENT DOES STILL HAVE SOME INCONTINENT EPISODES.
--- NOTE | 2022-07-26 18:36 | NUR ---
PT SUMMARY: NO ACUTE CHANGE FOR THE SHIFT, PT CURRENTLY ON 6L OF O2 VIA NASAL CANNULA, PT STILL DESATS WITH EXERTION RECOVERS QUICK, CPT DONE TWICE TODAY PER RT PT STATED IT WAS HELPING. PRUNE JUCIE COCKTAIL GIVEN TODAY PER REQUEST LARGE BM THIS MORNING FOLLOWED BY A BATH IN THE COMMODE. PT STILL HAS PUREWICK IN PLACE PER DIURESIS. WAS ABLE TO GET UP AND WALK IN THE ROOM VIA WALKER PT WAS GETTING BACK IN BED, TOLERATED WELL. PLAN TO DC PT TO SNF IF STABLE HOPEFULLY BY TOMORROW. CAME IN TO VISIT AND WAS UPDATED ABOUT PT'S PLAN. NO OTHER ISSUES ENCOUNTERED FOR THE SHIFT, ABLE TO MAKE NEEDS KNOWN, WILL REPORT TO ONCOMING SHIFT
[2022-07-27 03:58] LABS: Hematocrit 36.3 % (33.0-51.0); Hemoglobin 12.3 g/dL (11.5-16.0); Mean Corpuscular HGB 31.8 pg (26.0-34.0); Mean Corpuscular HGB Conc 33.9 g/dL (31.5-36.5); Mean Corpuscular Volume 94 fL (80-100); Mean Platelet Volume 11.6 fL (9.1-12.4); Platelet Count 364 K/mm3 (150-400); RDW Coefficient Variation 14.6 % (11.7-14.2); RDW Standard Deviation 49.5 fL (35.1-46.3); Red Blood Cell Count 3.87 M/mm3 (3.80-5.20); White Blood Cell Count 6.43 K/mm3 (4.00-11.30)
[2022-07-27 04:17] LABS: Albumin, Blood 2.1 g/dL (3.4-5.0); Albumin/Globulin Ratio 0.5 (0.8-1.8); Bilirubin, Total 0.3 mg/dL (0.1-1.0); Bun/Creatinine Ratio 41.4 (12.0-20.0); Calcium, Blood 8.9 mg/dL (8.5-10.1); Creatinine, Blood 0.73 mg/dL (0.40-1.00); Potassium, Blood 3.6 mmol/L (3.5-5.5); Total Protein, Blood 6.1 g/dL (6.4-8.2)
[2022-07-27 04:53] LABS: BAND PERCENT MAN 3 % (0-8); BASOPHILS PERCENT MAN 0 % (0-2); EOSINOPHILS ABSOLUTE MAN 0.12 K/mm3 (0.00-0.68); EOSINOPHILS PERCENT MAN 2 % (0-6); LYMPHOCYTES % ATYPICAL MANUAL 3 % (0-0); LYMPHOCYTES ABSOLUTE MAN 1.28 K/mm3 (0.84-5.20); LYMPHOCYTES PERCENT MAN 17 % (21-46); MONOCYTES ABSOLUTE MAN 0.77 K/mm3 (0.16-1.47); MONOCYTES PERCENT MAN 12 % (4-13); NEUTROPHILS ABSOLUTE MAN 4.24 K/mm3 (1.96-9.15); SEG NEUTROPHILS PERCENT MAN 63 % (41-73); TOTAL CELLS COUNTED 100
--- NOTE | 2022-07-27 05:49 | NUR ---
SHIFT SUMMARY PT REMAINS A&O. VSS. PT DENIES SOB WHILE RESTING, BUT REPORTS SOB W/EXERTION OR "ALOT OF MOVEMENT". PT SPO2 90 - 97% ON 6 L VIA NC. PT SPO2 DECREASED A FEW TIMES THROUGHOUT SHIFT, IF PT MOVING OR EXERTION; PT RECOVERED QUICKLY - NO NEED FOR INCREASED O2. PT NOW ON 5 L VIA NC AND SPO2 MAINTAINING >93%. PT SLEPT WELL THROUGHOUT NIGHT. PT REPOSITIONED SELF INDEPENDENTLY. PUREWICK IN PLACE AND COMPLETE SYSTEM CHANGED THIS SHIFT. PT HAS GOOD OUTPUT; CLEAR, YELLOW URINE. ATTENDS IN PLACE AND CHANGED ONCE AT BEGINNING OF SHIFT DUE TO PUREWICK LEAKING. NO ACUTE CHANGES THROUGHOUT SHIFT. CALL LIGHT IN USE AND PT ABLE TO VERBALIZE NEEDS AND CALL APPROPRIATELY. WILL UPDATE ONCOMING RN.
--- NOTE | 2022-07-27 17:49 | NUR ---
SHIFT SUMMARY: PT REMAINS A&O X4 DURING THE SHIFT. VITALS STABLE DENIES PAIN. STILL COMPLAINS OF SOB WITH EXERTION. PT IS CURRENTLY AT 6L ON HI-FLOW NASAL CANULA HOME MO2 EVAL DONE PT REQURING 6L CONTINUOUS, O2 SAT 90-94% AT REST. PURE WICK IS NO LONGER IN PLACE, 1 PERSON ASSIST TO BEDSIDE COMMODE. WOUND DRESSINGS C/D/I PT DOWNGRADED TO MEDICAL STATUS WITHOUT TELEMTRY. D/C TO SNF IN THE AM PER CASE MANAGEMENT.
--- NOTE | 2022-07-27 22:03 | NUR ---
ASSUMPTION OF CARE; 1900 THIS RN ASSUMED CARE OF PT AT 1900. REPORT RECEIVED FROM SUKHI, RN AND CONFERENCE SPECIALIST. PT SITTING UP IN BED, WATCHING TV. RT IN ROOM FOR CPT AND BREATHING TX. PT INTERACTING AND RESPONDING APPROPRIATELY, A&O X4. VSS; ALTHOUGH BP ON SOFT SIDE. FIRST READING SHOWED 91/55 (MAP OF 60), SECOND READING SHOWED 113/53 (MAP OF 69). 2100 DOSE OF ENTRESTO HELD D/T HYPOTENSION AND NOT WITHIN PARAMETERS. PUREWICK IN PLACE FOR NIGHT TIME PER DAYSHIFT, THIS RN CHECKED AND PW IS IN PLACE TO SUCTION. PT DENIES ANY CONCERNS OR NEEDS AT THIS TIME. CALL LIGHT IN REACH AND BED IN LOWEST POSITION.
[2022-07-28 04:38] LABS: BASOPHILS ABSOLUTE AUTO 0.08 K/mm3 (0.00-0.23); BASOPHILS PERCENT AUTO 1 % (0-2); EOSINOPHILS ABSOLUTE AUTO 0.15 K/mm3 (0.00-0.68); EOSINOPHILS PERCENT AUTO 3 % (0-6); Hematocrit 36.4 % (33.0-51.0); Hemoglobin 12.5 g/dL (11.5-16.0); IMMATURE GRAN ABSOLUTE AUTO 0.22 K/mm3 (0.00-0.10); IMMATURE GRAN PERCENT AUTO 4 % (0-1); LYMPHOCYTES ABSOLUTE AUTO 1.26 K/mm3 (0.84-5.20); LYMPHOCYTES PERCENT AUTO 22 % (21-46); MONOCYTES ABSOLUTE AUTO 0.68 K/mm3 (0.16-1.47); MONOCYTES PERCENT AUTO 12 % (4-13); Mean Corpuscular HGB Conc 34.3 g/dL (31.5-36.5); Mean Corpuscular Volume 93 fL (80-100); NEUTROPHILS ABSOLUTE AUTO 3.34 K/mm3 (1.96-9.15); NEUTROPHILS PERCENT AUTO 58 % (41-73); Platelet Count 366 K/mm3 (150-400); RDW Coefficient Variation 14.8 % (11.7-14.2); RDW Standard Deviation 49.8 fL (35.1-46.3); Red Blood Cell Count 3.91 M/mm3 (3.80-5.20); White Blood Cell Count 5.73 K/mm3 (4.00-11.30)
--- NOTE | 2022-07-28 05:59 | NUR ---
SHIFT SUMMARY PT REMAINS A&O THROUGHOUT SHIFT. VSS. PT REMAINED ON 5 L VIA NC W/SPO2 90 - 96%. PT REMAINS FREE OF CP OR PRESSURE, GENERAL PAIN. DENIES SOB AT REST, STILL REPORTING SOB AND DYSPNEA W/EXERTION. PT SLEPT WELL THROUGHOUT NIGHT. NO ACUTE CHANGES DURING SHIFT. PUREWICK IN PLACE T/O NIGHT, 600 MLS OUT. PW SYSTEM CHANGED THIS AM. WILL UPDATE ONCOMING RN. CALL LIGHT IN REACH AND BED IN LOW POSTION. PT CALLS APPROPRIATELY WHEN NEEDED
[2022-07-28 06:15] LABS: Bun/Creatinine Ratio 47.4 (12.0-20.0); Calcium, Blood 8.8 mg/dL (8.5-10.1); Creatinine, Blood 0.78 mg/dL (0.40-1.00); Potassium, Blood 3.3 mmol/L (3.5-5.5)
[2022-07-28] MEDS ORDERED: ELIQUIS5 M2 PO (10:42)
[2022-07-28] MEDS ORDERED: VISBIOME 112.51 EACH PO (10:42)
[2022-07-28] MEDS ORDERED: Tessalon200 MG PO (10:43)
[2022-07-28] MEDS ORDERED: TORSE20 PO (10:44)
[2022-07-28] MEDS ORDERED: Acetaminophen650 M1 PO (10:51)
[2022-07-28 11:07] LABS: SARS-Cov-2 (COVID-19) PCR, MMC NEGATIVE (NEGATIVE)
--- NOTE | 2022-07-28 11:26 | NUR ---
DISCHARGE PT A&O X4. VSS. SPO2 > 90% ON 6L [place] NC. PT REQUIRING BRIEF INCREASE TO 8L FOR ACTIVITY, THEN ABLE TO RETURN TO 6L. PT 1 PERSON ASSIST TO BSC & CHAIR. PT AWAITING TRANSPORT TO DISCHARGE TO FACILITY. REPORT GIVEN TO ACCEPTING CARE MEMBER @ [facility].
== END 2022-07-28 12:06 | DRG 280 ==
LOC: ER 09:21 → PCU 14:01
PROVIDERS: Internal Medicine; Nurse Practitioner Acute Care; Physician Assistant; Student in an Organized Health Care Education/Training Program; ADMIT Internal Medicine
PROC: 5A09357 Assistance with Respiratory Ventilation, Less than 24 Consecutive Hours, Continuous Positive Airway Pressure (ICD-10-PCS; principal; 2022-07-20)
DX: I50.43 Acute on chronic combined systolic (congestive) and diastolic (congestive) heart failure (principal); I21.A1 Myocardial infarction type 2; J18.9 Pneumonia, unspecified organism; J96.01 Acute respiratory failure with hypoxia; J44.0 Chronic obstructive pulmonary disease with (acute) lower respiratory infection; I47.29 Other ventricular tachycardia; E87.29 Other acidosis; Z20.822 Contact with and (suspected) exposure to COVID-19; I48.91 Unspecified atrial fibrillation; I27.20 Pulmonary hypertension, unspecified; I73.9 Peripheral vascular disease, unspecified; R73.9 Hyperglycemia, unspecified; Z87.891 Personal history of nicotine dependence; Z88.2 Allergy status to sulfonamides; Z79.899 Other long term (current) drug therapy
CPT/HCPCS: 0241U; 36415; 71046; 80048; 80053; 82803; 82947; 83605; 83735; 83880; 84145; 84436; 84443; 84481; 84484; 85025; 85520; 85610; 85730; 86376; 86800; 87040; 93005; 93010; 93306; 94640; 94660; 94664; 94667; 94668; 94760; 94761; 94762; 96365; 96375; 97110; 97112; 97162; 97166; 97530; 97535; 99285-25; A9270; J0456; J0696; J1644; J1650; J1940; J2930; J7030; J7050; J7512; U0004

== ENCOUNTER 2022-08-26 01:14 | Day surgery (SDC) | payer MEDICARE, OTHER ==
[~2022-08-26 01:14] MED LIST changes: +Acetaminophen650 M1 PO; +ELIQUIS5 M2 PO; +TORSE20 PO; +Tessalon200 MG PO; +VISBIOME 112.51 EACH PO
== END 2022-08-26 22:49 | disposition home or self-care (01) ==
LOC: WOUND 01:14
DX: L97.812 Non-pressure chronic ulcer of other part of right lower leg with fat layer exposed (principal); J44.9 Chronic obstructive pulmonary disease, unspecified; I50.9 Heart failure, unspecified; I70.213 Atherosclerosis of native arteries of extremities with intermittent claudication, bilateral legs
CPT/HCPCS: G0463

== ENCOUNTER → 2023-05-05 | Outpatient (CLI) | payer MEDICARE, OTHER ==
[2023-05-05 17:43] LABS: BASOPHILS ABSOLUTE AUTO 0.07 K/mm3 (0.00-0.23); BASOPHILS PERCENT AUTO 1 % (0-2); EOSINOPHILS ABSOLUTE AUTO 0.11 K/mm3 (0.00-0.68); EOSINOPHILS PERCENT AUTO 2 % (0-6); Hematocrit 40.2 % (33.0-51.0); Hemoglobin 12.9 g/dL (11.5-16.0); IMMATURE GRAN ABSOLUTE AUTO 0.01 K/mm3 (0.00-0.10); IMMATURE GRAN PERCENT AUTO 0 % (0-1); LYMPHOCYTES ABSOLUTE AUTO 1.81 K/mm3 (0.84-5.20); LYMPHOCYTES PERCENT AUTO 35 % (21-46); MONOCYTES ABSOLUTE AUTO 0.63 K/mm3 (0.16-1.47); MONOCYTES PERCENT AUTO 12 % (4-13); Mean Corpuscular HGB 30.6 pg (26.0-34.0); Mean Corpuscular Volume 96 fL (80-100); NEUTROPHILS ABSOLUTE AUTO 2.52 K/mm3 (1.96-9.15); NEUTROPHILS PERCENT AUTO 49 % (41-73); Platelet Count 206 K/mm3 (150-400); RDW Coefficient Variation 15.3 % (11.7-14.2); RDW Standard Deviation 54.4 fL (35.1-46.3); Red Blood Cell Count 4.21 M/mm3 (3.80-5.20); White Blood Cell Count 5.15 K/mm3 (4.00-11.30)
[2023-05-05 17:45] LABS: Mean Corpuscular HGB Conc 32.1 g/dL (31.5-36.5)
[2023-05-05 19:29] LABS: Alanine Aminotransfer (ALT/SGP 16 U/L (12-78); Albumin, Blood 3.2 g/dL (3.4-5.0); Albumin/Globulin Ratio 0.8 (0.8-1.8); Alk Phos 89 U/L (50-136); Anion Gap 6 mmol/L (6-16); Aspartate Aminotrans (AST/SGOT 14 U/L (12-37); Bilirubin, Total 0.3 mg/dL (0.1-1.0); Blood Urea Nitrogen 13 mg/dL (8-24); Bun/Creatinine Ratio 15.3 (12.0-20.0); CHOL/HDL RATIO 1.8; CO2, Blood 32 mmol/L (21-32); Calcium, Blood 9.1 mg/dL (8.5-10.1); Chloride, Blood 103 mmol/L (98-108); Cholesterol 225 mg/dL (50-200); Creatinine, Blood 0.85 mg/dL (0.40-1.00); Globulin, Blood 3.8 g/dL (2.2-4.0); Glomerular Filtration Rate 66 (60-); Glucose, Blood 117 mg/dL (70-99); HDL Cholesterol 128 mg/dL (>39); LDL/HDL RATIO 0.7; Low Density Lipoprotein Chol 86 mg/dL (0-110); Potassium, Blood 3.9 mmol/L (3.5-5.5); Sodium, Blood 141 mmol/L (136-145); Triglycerides 55 mg/dL (30-160); Very Low Density Lipoprot Chol 11 mg/dL (6-32)
== END | disposition home or self-care (01) ==
LOC: LAB 16:06 → LAB SHORT 16:06
PROVIDERS: Nurse Practitioner Family
DX: Z13.220 Encounter for screening for lipoid disorders (principal); I10 Essential (primary) hypertension; E55.9 Vitamin D deficiency, unspecified
CPT/HCPCS: 80053; 80061; 82306; 84443; 85025

== ENCOUNTER → 2024-07-10 | Outpatient (CLI) | payer MEDICARE, OTHER ==
[2024-07-10 19:53] LABS: Hematocrit 36.7 % (33.0-51.0); Hemoglobin 12.1 g/dL (11.5-16.0); Mean Corpuscular Volume 100 fL (80-100); Mean Platelet Volume 13.3 fL (9.1-12.4); Platelet Count 233 K/mm3 (150-400); RDW Coefficient Variation 13.6 % (11.7-14.2); RDW Standard Deviation 49.8 fL (35.1-46.3); Red Blood Cell Count 3.67 M/mm3 (3.80-5.20); White Blood Cell Count 6.47 K/mm3 (4.00-11.30)
[2024-07-10 20:12] LABS: BASOPHILS ABSOLUTE MAN 0.06 K/mm3 (0.00-0.23); BASOPHILS PERCENT MAN 1 % (0-2); EOSINOPHILS ABSOLUTE MAN 0.06 K/mm3 (0.00-0.68); EOSINOPHILS PERCENT MAN 1 % (0-6); LYMPHOCYTES ABSOLUTE MAN 1.22 K/mm3 (0.84-5.20); LYMPHOCYTES PERCENT MAN 19 % (21-46); MONOCYTES ABSOLUTE MAN 0.64 K/mm3 (0.16-1.47); MONOCYTES PERCENT MAN 10 % (4-13); NEUTROPHILS ABSOLUTE MAN 4.46 K/mm3 (1.96-9.15); SEG NEUTROPHILS PERCENT MAN 69 % (41-73); TOTAL CELLS COUNTED 100
[2024-07-10 20:53] LABS: Alanine Aminotransfer (ALT/SGP 15 U/L (12-78); Albumin/Globulin Ratio 0.8 (0.8-1.8); Alk Phos 87 U/L (50-136); Anion Gap 13 mmol/L (3-11); Aspartate Aminotrans (AST/SGOT 10 U/L (12-37); Bilirubin, Total 0.8 mg/dL (0.1-1.0); Blood Urea Nitrogen 13 mg/dL (8-24); CHOL/HDL RATIO 1.6; CO2, Blood 27 mmol/L (21-32); Chloride, Blood 102 mmol/L (98-108); Cholesterol 209 mg/dL (50-200); Globulin, Blood 3.8 g/dL (2.2-4.0); Glucose, Blood 110 mg/dL (70-99); HDL Cholesterol 131 mg/dL (>39); LDL/HDL RATIO 0.5; Low Density Lipoprotein Chol 65 mg/dL (0-110); Sodium, Blood 138 mmol/L (136-145); Total Protein, Blood 6.8 g/dL (6.4-8.2); Triglycerides 67 mg/dL (30-160); Very Low Density Lipoprot Chol 13 mg/dL (6-32)
[2024-07-10 21:01] LABS: Bun/Creatinine Ratio 19.8 (12.0-20.0); Creatinine, Blood 0.66 mg/dL (0.40-1.00); Glomerular Filtration Rate 84 (60-)
== END ==
LOC: LAB SHORT 17:30 → LAB 17:30
PROVIDERS: Nurse Practitioner Family
DX: Z13.220 Encounter for screening for lipoid disorders (principal); I10 Essential (primary) hypertension
CPT/HCPCS: 80053; 80061; 85025

== ENCOUNTER 2025-02-10 13:33 | Observation (INO) | payer MEDICARE, OTHER ==
[~2025-02-10] VITALS: Ht 175.3 cm; Wt 76.9 kg
[2025-02-10] MEDS ORDERED: CeFAZolin Sodium 2,000 MG in NS 100 ML IV ONE (14:30)
[2025-02-10 14:55] LABS: BASOPHILS ABSOLUTE AUTO 0.11 K/mm3 (0.00-0.23); BASOPHILS PERCENT AUTO 2 % (0-2); EOSINOPHILS ABSOLUTE AUTO 0.08 K/mm3 (0.00-0.68); EOSINOPHILS PERCENT AUTO 1 % (0-6); Hematocrit 35.2 % (33.0-51.0); Hemoglobin 11.7 g/dL (11.5-16.0); IMMATURE GRAN ABSOLUTE AUTO 0.04 K/mm3 (0.00-0.10); IMMATURE GRAN PERCENT AUTO 1 % (0-1); LYMPHOCYTES ABSOLUTE AUTO 0.99 K/mm3 (0.84-5.20); LYMPHOCYTES PERCENT AUTO 13 % (21-46); MONOCYTES ABSOLUTE AUTO 0.79 K/mm3 (0.16-1.47); MONOCYTES PERCENT AUTO 10 % (4-13); Mean Corpuscular HGB Conc 33.2 g/dL (31.5-36.5); Mean Corpuscular Volume 95 fL (80-100); NEUTROPHILS ABSOLUTE AUTO 5.57 K/mm3 (1.96-9.15); NEUTROPHILS PERCENT AUTO 73 % (41-73); NRBC ABSOLUTE 0.00 K/mm3 (0.00-0.02); NRBC Auto 0.0 /100 WBC (0.0-0.2); Platelet Count 248 K/mm3 (150-400); RDW Coefficient Variation 15.3 % (11.7-14.2); RDW Standard Deviation 51.8 fL (35.1-46.3)
[2025-02-10 15:19] LABS: Alanine Aminotransfer (ALT/SGP 14.0 U/L (12-78); Albumin, Blood 2.6 g/dL (3.4-5.0); Albumin/Globulin Ratio 0.6 (0.8-1.8); Anion Gap 6.0 mmol/L (3-11); Aspartate Aminotrans (AST/SGOT 11.0 U/L (12-37); Bilirubin, Total 0.5 mg/dL (0.1-1.0); Blood Urea Nitrogen 15.0 mg/dL (8-24); C-Reactive Protein, High Sens. 24.0 mg/L (0.000-3.000); CO2, Blood 31.0 mmol/L (21-32); Calcium, Blood 8.4 mg/dL (8.5-10.1); Chloride, Blood 104.0 mmol/L (98-108); Creatinine, Blood 0.93 mg/dL (0.40-1.00); Globulin, Blood 4.5 g/dL (2.2-4.0); Glucose, Blood 110.0 mg/dL (70-99); Potassium, Blood 4.4 mmol/L (3.5-5.5); Sodium, Blood 137.0 mmol/L (136-145); Total Protein, Blood 7.1 g/dL (6.4-8.2)
[2025-02-10 18:47] VITALS: BP 116/102
--- NOTE | 2025-02-10 18:48 | NUR ---
PT ARRIVED TO UNIT FROM ED AMBULATED WITH FWW TO RESTROOM AND VOIDED 600 DARK YELLOW URINE. ORIENTED USE OF CALL LIGHT. PROVIDED DINNER TRAY. LUNGS CLEAR BUT DIMINISHED IN BASES. HR TACHY @ 123. BTX4. BLE FIRM AND RED. DRESSING TO BLE CDI. PPP. BEDSIDE REPORT GIVEN TO MO RN.
[2025-02-10 19:33] VITALS: BP 132/58
[2025-02-10] MEDS ORDERED: Lactobacil 2-S.Thermo-Bifido 1 1 Cap PO SCH (21:00)
[2025-02-10] MEDS ORDERED: NS 250 ML IV PRN (23:20)
[2025-02-10 23:25] VITALS: BP 121/62
[2025-02-11] MEDS ORDERED: CeFAZolin Sodium 2,000 MG in NS 100 ML IV SCH
[2025-02-11 04:35] VITALS: BP 114/64
[2025-02-11 05:06] LABS: BASOPHILS ABSOLUTE AUTO 0.07 K/mm3 (0.00-0.23); BASOPHILS PERCENT AUTO 1 % (0-2); EOSINOPHILS ABSOLUTE AUTO 0.14 K/mm3 (0.00-0.68); EOSINOPHILS PERCENT AUTO 2 % (0-6); Hematocrit 30.6 % (33.0-51.0); Hemoglobin 10.0 g/dL (11.5-16.0); IMMATURE GRAN ABSOLUTE AUTO 0.03 K/mm3 (0.00-0.10); IMMATURE GRAN PERCENT AUTO 1 % (0-1); LYMPHOCYTES ABSOLUTE AUTO 1.34 K/mm3 (0.84-5.20); LYMPHOCYTES PERCENT AUTO 22 % (21-46); MONOCYTES ABSOLUTE AUTO 0.69 K/mm3 (0.16-1.47); MONOCYTES PERCENT AUTO 11 % (4-13); Mean Corpuscular HGB Conc 32.7 g/dL (31.5-36.5); Mean Corpuscular Volume 95 fL (80-100); NEUTROPHILS ABSOLUTE AUTO 3.78 K/mm3 (1.96-9.15); NEUTROPHILS PERCENT AUTO 63 % (41-73); NRBC ABSOLUTE 0.00 K/mm3 (0.00-0.02); NRBC Auto 0.0 /100 WBC (0.0-0.2); Platelet Count 202 K/mm3 (150-400); RDW Coefficient Variation 15.3 % (11.7-14.2); RDW Standard Deviation 52.8 fL (35.1-46.3)
--- NOTE | 2025-02-11 05:28 | NUR ---
DEPUTY JUVENILE OFFICER SUMMARY PT WAS A NEW ADMIT JUST BEFORE START OF SHIFT. PT ADMITTED FOR POSSIBLE SURGICAL INTERVENTION OF WOUNDS TO HER BLE. PT HAS A WOUND ON HER R INNER FOOT/ANKLE AREA AND ONE ON THE L OUTER ANKLE AREA. WOUNDS WERE CLEANED AND DRESSED BY ED DOCTOR AND DRESSING WAS TO BE LEFT ALONE FOR THE NIGHT UNLESS THEY BECAME SATURATED PER REPORT. LIGHT DRAINAGED NOTED TO DRESSINGS. 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 PT ABLE TO AMBULATE WITH A FWW AND STANDBY ASSIST. ON IV ABX PER AUG. SR W/ PVC/PAC ON TELE. PT HAS BEEN NPO SINCE MIDNIGHT IN PREP FOR POSSIBLE PROCEDURE LATER TODAY. VSS, CARLOS.
[2025-02-11 05:36] LABS: Anion Gap 5.0 mmol/L (3-11); Blood Urea Nitrogen 15.0 mg/dL (8-24); CO2, Blood 30.0 mmol/L (21-32); Calcium, Blood 8.0 mg/dL (8.5-10.1); Chloride, Blood 107.0 mmol/L (98-108); Creatinine, Blood 0.77 mg/dL (0.40-1.00); Glucose, Blood 93.0 mg/dL (70-99); Potassium, Blood 3.8 mmol/L (3.5-5.5); Sodium, Blood 138.0 mmol/L (136-145)
[2025-02-11 07:47] VITALS: BP 128/84
[2025-02-11] MEDS ORDERED: CEPH500 PO (12:35)
--- NOTE | 2025-02-11 12:50 | NUR ---
ASSUMPTION ASSUMED CARE OF PT @0700. PT AXO4. VSS. WOUNDS DRESSED TO BILAT LEGS. DR HUTSON ASSESSED PT. STATES WOUNDS NONSURGICAL, DIET ORDER RECEIVED. DR HUTSON UNDRESSED WOUNDS, CLEANED THERM, PICTURES PLACED IN CHART, WOUNDS REDRESSED. ORDERED A WARM SOAPY FOOT BATH BEFORE DC BUT STATES PT CAN DC TODAY. DR PETERS ASSESSED PT, STATES PT CAN DC TODAY WELL. ORDERS RECEIVED. PT AMBULATORY. NO ACUTE CHANGES FROM ASSUMPTION.
--- NOTE | 2025-02-11 16:10 | NUR ---
DC POST ASSUMPTION NOTE, NO ACUTE CHANGES. VSS. FOOT BATH PROVIDED, WOUNDS REDRESSED. ORDERS PLACED FOR WOUND CARE FOLLOWUP AND HOME HEALTH - PT AWARE. PT HAS BEEN SITTING UP IN HER CHAIR SINCE ASSUMPTION NOTE COMPLETING CROSSWORD PUZZLES. USING CALL LIGHT APPROPRIATELY. DC INSTRUCTIONS PROVIDED, PACKET WITH PT. AWAITING FOR SPOUSE TO PICK PT UP. IV PULLED, TELE TO BE PULLED OFF. BELONGINGS PACKED UP. DRESSINGS TO BILAT LEGS CDI.
--- NOTE | 2025-02-11 16:28 | NUR ---
PT DC'D @3335 WITH . BELONGINGS WITH PT.
== END 2025-02-11 16:34 | disposition home or self-care (01) ==
LOC: ER 13:33 → SURS 13:34 → ER 18:20 → SURS 18:58
PROVIDERS: Emergency Medicine; ADMIT Student in an Organized Health Care Education/Training Program
DX: L97.819 Non-pressure chronic ulcer of other part of right lower leg with unspecified severity (principal); L97.829 Non-pressure chronic ulcer of other part of left lower leg with unspecified severity; I73.9 Peripheral vascular disease, unspecified; I87.2 Venous insufficiency (chronic) (peripheral); I50.22 Chronic systolic (congestive) heart failure; J44.9 Chronic obstructive pulmonary disease, unspecified; I48.20 Chronic atrial fibrillation, unspecified; Z87.891 Personal history of nicotine dependence; Z79.01 Long term (current) use of anticoagulants; Z79.899 Other long term (current) drug therapy; Z88.2 Allergy status to sulfonamides
CPT/HCPCS: 36415; 73590; 80048; 80053; 83605; 85025; 85651; 86141; 96365; 96366; 96376; 99285-25; A9270; G0378; J0690; J1938; J7050

== ENCOUNTER 2025-02-20 03:21 | Day surgery (SDC) | payer MEDICARE, OTHER ==
[~2025-02-20 03:21] MED LIST changes: +CEPH500 PO
[2025-02-20] MEDS ORDERED: Lidocaine HCl 4% Cream 5 GM ONE (12:54)
== END 2025-02-20 23:00 | disposition home or self-care (01) ==
LOC: WOUND 03:21
DX: L97.312 Non-pressure chronic ulcer of right ankle with fat layer exposed (principal); L97.522 Non-pressure chronic ulcer of other part of left foot with fat layer exposed; I87.2 Venous insufficiency (chronic) (peripheral); I73.9 Peripheral vascular disease, unspecified; I50.9 Heart failure, unspecified; J44.9 Chronic obstructive pulmonary disease, unspecified; Z88.1 Allergy status to other antibiotic agents; Z87.891 Personal history of nicotine dependence
CPT/HCPCS: A9270

== ENCOUNTER 2025-03-07 03:14 | Day surgery (SDC) | payer MEDICARE, OTHER ==
[2025-03-07] MEDS ORDERED: Lidocaine HCl 4% Cream 5 GM ONE (10:54)
== END 2025-03-07 23:00 | disposition home or self-care (01) ==
LOC: WOUND 03:14
DX: L97.312 Non-pressure chronic ulcer of right ankle with fat layer exposed (principal); L97.522 Non-pressure chronic ulcer of other part of left foot with fat layer exposed; I87.2 Venous insufficiency (chronic) (peripheral); I73.9 Peripheral vascular disease, unspecified
CPT/HCPCS: A9270

== ENCOUNTER 2025-03-14 02:25 | Day surgery (SDC) | payer MEDICARE, OTHER ==
[2025-03-14] MEDS ORDERED: Lidocaine HCl 4% Cream 5 GM ONE (11:08)
== END 2025-03-14 23:00 | disposition home or self-care (01) ==
LOC: WOUND 02:25
DX: L97.522 Non-pressure chronic ulcer of other part of left foot with fat layer exposed (principal); L97.312 Non-pressure chronic ulcer of right ankle with fat layer exposed; I87.2 Venous insufficiency (chronic) (peripheral); I73.9 Peripheral vascular disease, unspecified; J44.9 Chronic obstructive pulmonary disease, unspecified; I50.9 Heart failure, unspecified
CPT/HCPCS: A9270

== ENCOUNTER 2025-03-28 01:24 | Day surgery (SDC) | payer MEDICARE, OTHER ==
[2025-03-28] MEDS ORDERED: Lidocaine HCl 4% Cream 5 GM ONE (14:19)
== END 2025-03-28 23:00 | disposition home or self-care (01) ==
LOC: WOUND 01:24
DX: L97.312 Non-pressure chronic ulcer of right ankle with fat layer exposed (principal); L97.522 Non-pressure chronic ulcer of other part of left foot with fat layer exposed; I73.9 Peripheral vascular disease, unspecified; I87.2 Venous insufficiency (chronic) (peripheral); J44.9 Chronic obstructive pulmonary disease, unspecified; I50.9 Heart failure, unspecified
CPT/HCPCS: A9270

== ENCOUNTER 2025-04-11 00:26 | Day surgery (SDC) | payer MEDICARE, OTHER ==
[2025-04-11] MEDS ORDERED: Lidocaine HCl 4% Cream 5 GM ONE (10:46)
== END 2025-04-11 23:00 | disposition home or self-care (01) ==
LOC: WOUND 00:26
DX: L97.312 Non-pressure chronic ulcer of right ankle with fat layer exposed (principal); I70.25 Atherosclerosis of native arteries of other extremities with ulceration; L98.492 Non-pressure chronic ulcer of skin of other sites with fat layer exposed; J44.9 Chronic obstructive pulmonary disease, unspecified; I50.9 Heart failure, unspecified; I87.2 Venous insufficiency (chronic) (peripheral)
CPT/HCPCS: A9270

== ENCOUNTER 2025-04-18 03:08 | Day surgery (SDC) | payer MEDICARE, OTHER ==
[2025-04-18] MEDS ORDERED: Lidocaine HCl 4% Cream 5 GM ONE (10:20)
== END 2025-04-18 23:00 | disposition home or self-care (01) ==
LOC: WOUND 03:08
DX: L97.312 Non-pressure chronic ulcer of right ankle with fat layer exposed (principal); L97.522 Non-pressure chronic ulcer of other part of left foot with fat layer exposed; I73.9 Peripheral vascular disease, unspecified; I87.2 Venous insufficiency (chronic) (peripheral); J44.9 Chronic obstructive pulmonary disease, unspecified; I50.9 Heart failure, unspecified
CPT/HCPCS: A9270

== ENCOUNTER 2025-04-25 00:43 | Day surgery (SDC) | payer MEDICARE, OTHER ==
[2025-04-25] MEDS ORDERED: Lidocaine HCl 4% Cream 5 GM ONE (11:03)
== END 2025-04-25 23:00 | disposition home or self-care (01) ==
LOC: WOUND 00:43
DX: L97.312 Non-pressure chronic ulcer of right ankle with fat layer exposed (principal); L97.522 Non-pressure chronic ulcer of other part of left foot with fat layer exposed; I73.9 Peripheral vascular disease, unspecified; I87.2 Venous insufficiency (chronic) (peripheral); J44.9 Chronic obstructive pulmonary disease, unspecified; I50.9 Heart failure, unspecified
CPT/HCPCS: A9270

== ENCOUNTER 2025-05-02 01:54 | Day surgery (SDC) | payer MEDICARE, OTHER ==
[2025-05-02] MEDS ORDERED: Lidocaine HCl 4% Cream 5 GM ONE (10:36)
== END 2025-05-02 23:00 | disposition home or self-care (01) ==
LOC: WOUND 01:54
DX: L97.522 Non-pressure chronic ulcer of other part of left foot with fat layer exposed (principal); L97.312 Non-pressure chronic ulcer of right ankle with fat layer exposed; I87.2 Venous insufficiency (chronic) (peripheral); I73.9 Peripheral vascular disease, unspecified; J44.9 Chronic obstructive pulmonary disease, unspecified; I50.9 Heart failure, unspecified
CPT/HCPCS: A9270

== ENCOUNTER 2025-05-09 00:16 | Day surgery (SDC) | payer MEDICARE, OTHER ==
[2025-05-09] MEDS ORDERED: Lidocaine HCl 4% Cream 5 GM ONE (10:39)
== END 2025-05-09 23:00 | disposition home or self-care (01) ==
LOC: WOUND 00:16
DX: L97.315 Non-pressure chronic ulcer of right ankle with muscle involvement without evidence of necrosis (principal); I70.245 Atherosclerosis of native arteries of left leg with ulceration of other part of foot; L97.525 Non-pressure chronic ulcer of other part of left foot with muscle involvement without evidence of necrosis; J44.9 Chronic obstructive pulmonary disease, unspecified; I50.9 Heart failure, unspecified; I87.2 Venous insufficiency (chronic) (peripheral); I25.10 Atherosclerotic heart disease of native coronary artery without angina pectoris
CPT/HCPCS: A9270